=== PATIENT | female | born 1995 | race African-American/Black ===

== ENCOUNTER 2021-07-27 09:37 | Inpatient (IN) | payer OTHER ==
[~2021-07-27] VITALS: Ht 167.6 cm; Wt 76.3 kg
[2021-07-27] VITALS (31 sets, daily range): BP systolic 100–146; BP diastolic 56–77
[2021-07-27] MEDS ORDERED: PRENTAB9 PO (10:00)
[2021-07-27] MEDS ORDERED: HOME MED LIST COMPLETE! XX SCH (10:00)
[2021-07-27] MEDS ORDERED: LACTATED RINGER'S 1000 ML IV STA (11:27)
[2021-07-27] MEDS ORDERED: CARBOPROST TROMETHAMINE 250 MCG/ML AMP IM PRN (11:30)
[2021-07-27] MEDS ORDERED: LIDOCAINE 1% MDV 20ML VIAL INFIL PRN (11:30)
[2021-07-27] MEDS ORDERED: OXYTOCIN DRIP 30 UNITS in IV 1 EA IV SCH (11:30)
[2021-07-27] MEDS ORDERED: METHYLERGONOVINE MALEATE 0.2 MG/ML VIAL (J2210) IM PRN (11:30)
[2021-07-27] MEDS ORDERED: TRANEXAMIC ACID INJection 1,000 MG in NS 100 ML IV PRN (11:30)
[2021-07-27] MEDS ORDERED: OXYTOCIN DRIP 30 UNITS in IV 1 EA IV PRN ×6 (11:30)
--- NOTE | 2021-07-27 11:45 | HPEPDOC ---
Obstetrical History & Physical General Date of Admission History of Present Illness The patient is a 26 year old G1 at 40 week gestation by LMP C/W 10 week ultrasound. She presents to Labor & Delivery today with chief complaint of possible rupture of membranes with clear fluids since 0700 hours this morning associated with some mild cramping. She denies any vaginal bleeding At this time, she continues to report regular movement. Information Provided By: Patient Care Care: Good Care Dating Final EDC: Jul 27, 2021 Final EDC for Daily Update: Jul 27, 2021 Final EDC by: LMP LMP: Oct 20, 2020 EGA at Admission: 40 Antepartum Course Diagnos(e)s 1. ROBERTO a 37 weeks from [facility] Height (inches): 66 Pre- weight (lbs.): 145 Admission Weight (lbs.): 169 Change in Weight (lbs.): 24 Past Medical History Past Obstetrical History : Past Obstetrical History: [employer] History: No pertinent history Past Medical History Surgical History: Denies/None Family History Significant Family History: No pertinent family hx Social History Marital Status: Family situation: Spouse/partner home Psychosocial History: No pertinent psych hx * Smoker: non-smoker Alcohol: Denies Drugs: denies Abuse Violence Screening Have you been hit/kicked/slapp: No Have you been sexually assault: No Imunizations Tdap status: current Influenza Status: current Allergies Coded Allergies: No Known Allergies (Unverified , 07/27/21) Medications Scheduled No.137/Iron/Folic Acd ( Vitamin Tablet) 1 Each Tablet, 1 TAB PO DAILY Physical Examination Physical Examination GENERAL: Alert and oriented times three. BREAST: . ABDOMEN: Gravid and non-tender to touch. FETUS: Is vertex (VTX) by sterile vaginal examination (SVE), and US in clinic yesterday HEART RATE: Regular rate and rhythm. LUNGS: normal work of breathing EXTREMITIES: No edema. Vital Signs/I&O Vital Signs Date Time Temp Pulse Resp B/P (MAP) Pulse Ox O2 Delivery O2 Flow Rate FiO2 07/27/21 10:23 88 114/75 (88) 98 07/27/21 10:12 98.0 16 Laboratory Data Urine Culture: Other Pertinent Laboratoy Data Blood Type: O+ RBC Antibody Screen: Negative HIV: Negative Hepatitis B: Negative Hepatitis C: Unknown Rapid Plasma Reagin: Nonreactive Rubella: Immune Varicella: Immune Chlamydia/Gonorrhea: Negative Group B Streptococcus: Negative Quad Screen Test: Negative Cystic Fibrosis: Negative Glucose Tolerance Test: 104 Anatomy Ultrasound Ultrasound Date: Mar 10, 2021 Placenta Location: Anterior Normal Anatomy: Yes Vaginal Examination Dilation: 3 cm Effacement: 70% Station: -2 Cervical Consistency: Medium Cervical Position: Middle Presentation: Cephalic presentation Assessment Heart Rate (FHR): 145 Variability: Moderate Accelerations: Positive Decelerations: None Tocometer Contractions: Yes Frequency: every 1-5 min. Duration: less than 60 seconds Strength: palpated as mild Multi-drug resistant Organism: No history of MDRO Assessment/Plan Assessment Assessment: 26 y/o G1 at 40 weeks by LMP /W 10 W US admitted with PROM . Pelvis Adequate for trial of labor. Category I FHRT. APC: 1. ROBERTO at 37 weeks from [facility] SVE: 3/75/-2 GBS NEG Cephalic by exam, US in clinic EFW 3200 RH POS Placenta anterior Plan Plan: - Admit to L&D. - Consent done - CBC with type and screen. - EFM - Anesthesia to see - Risks of augmentation with Pitocin discussed with patient. C-S as appropriate. MIKE GAXIOLA MD Jul 27, 2021 11:45
[2021-07-27 12:03] LABS: HEMATOCRIT 39.4 % (36.0-47.0); HEMOGLOBIN 12.4 g/dl (12.0-15.5); MEAN CORPUSCULAR HGB CONC 31.5 g/dl (32.0-36.5); MEAN CORPUSCULAR VOLUME 85.7 fl (80.0-96.0); PLATELET COUNT, AUTOMATED 292 10^3/uL (150-450); WHITE BLOOD COUNT 8.1 10^3/uL (4.0-10.0)
[2021-07-27] MEDS: LR 1,000 ML IV SCH ×4 (12:18→19:12)
[2021-07-27] MEDS ORDERED: FENTANYL 2MCG/ML ROPIVACAINE 0.2% IN 0.9% NACL 100ML IVBAG As Ordered ONE ×2 (13:04→13:54)
[2021-07-27] MEDS ORDERED: ONDANSETRON 4MG/2ML VIAL IV PRN (13:50)
[2021-07-27] MEDS ORDERED: REFRIGERATOR IV KEYS XX PRN (13:50)
[2021-07-27] MEDS ORDERED: LACTATED RINGER'S 1000 ML IV PRN (13:50)
[2021-07-27] MEDS ORDERED: EPIDURAL/PCA KEYS XX PRN (13:50)
[2021-07-27] MEDS ORDERED: FENTANYL/ROPIVACAINE/NACL BAG 100 ML EPIDURAL SCH (13:50)
[2021-07-27] MEDS ORDERED: ePHEDrine SULFATE 25 MG/5 ML(5MG/ML) SYRINGE IV PRN (13:50)
[2021-07-27] MEDS ORDERED: EPIDURAL COMMENT XX SCH (13:50)
[2021-07-27] MEDS ORDERED: diphenhydrAMINE 50MG/ML VIAL (J1200) IV PRN (13:50)
[2021-07-27] MEDS ORDERED: NALOXONE INJ 0.4MG/1ML VIAL (J2310 PER 1MG) IV PRN (13:50)
[2021-07-27] MEDS ORDERED: DOCUSATE SODIUM 100MG CAPSULE PO PRN (20:40)
[2021-07-27] MEDS ORDERED: IBUPROFEN 800 MG TAB PO PRN (20:40)
[2021-07-27] MEDS ORDERED: ACETAMINOPHEN 500 MG TAB PO PRN (20:40)
[2021-07-27] MEDS ORDERED: DIBUCAINE 1% OINTMENT 30GM TOP PRN (20:40)
[2021-07-27] MEDS ORDERED: MEASLES,MUMPS,RUBELLA VACCINE INJ (MMR-II) (90707) SC SCH (20:40)
[2021-07-27] MEDS ORDERED: ANUSOL HC CREAM 30GM TOP PRN (20:40)
[2021-07-27 20:44] LABS: CORD GAS ABE V -7.6; CORD GAS HCO3 A 19.6 MEQ/L; CORD GAS HCO3 V 18.3 MEQ/L; CORD GAS O2 SAT A 49.7 %; CORD GAS O2 SAT V 60.8 %; CORD GAS PCO2 A 47.5 mmHg; CORD GAS PCO2 V 38.8 mmHg; CORD GAS PH A 7.233 UNITS; CORD GAS PH V 7.292 UNITS; CORD GAS PO2 A 22.8 mmHg; CORD GAS PO2 V 25.5 mmHg; CORD GAS SBC V 17.6 MEQ/L; CORD GAS TCO2 V 19.5 MEQ/L
--- NOTE | 2021-07-27 20:50 | DNPDOC ---
[facility] Delivery Note Delivery Note DATE OF DELIVERY: 07/27/2021 PREDELIVERY DIAGNOSIS: 40-0/7 weeks' gestation and labor. POST DELIVERY DIAGNOSIS: Delivered. PROCEDURE: Spontaneous vaginal delivery RISK MANAGER: Dr. Mike GAXIOLA ANESTHESIA: Epidural ESTIMATED BLOOD LOSS: 150 mL. FINDINGS: 6 pound 15 ounce 3140g female , Score 9 /10 DELIVERY SUMMARY: Patient is a 26-year-old 1 now para 1001 who was admitted to labor and delivery for Labor. .Patient progressed to C/C/+2 and with good maternal effort delivered a viable infant. The infants head delivered STRAIGHT OP. No nuchal cord upon delivery of the head. Anterior shoulder delivered with gentle downward traction followed by posterior shoulder and corpus without difficulty. Normal 3-vessel cord clamped x 2 and cut by FOB after 1 min of delayed cord clamping. Spontaneous cry noted. placed on maternal abdomen for [id number]. Placenta delivered spontaneously and inspection of the placenta demonstrated that it was intact. The cord insertion appeared normal. The uterus was cleared of all clots and debris. Fundal massage until firm. 30 units of Pitocin administered per protocol and the patient required no additional uterotonics. Inspection of cervix, perineum, and vaginal wall revealed a 1ST DEGRE LACERATION THAT WAS REPAIRED WITH 2 FIGURE OF EIGHT STITCHES with 2-0 vicryl and bilateral labial abrasions that were hemostatis without repair. Repeat uterine examination noted uterine tone to be adequate and firm. Mom and infant stayed in L&D in hemodynamic stable condition upon my departure. Sponge, lap and needle count correct x 2. JESSEE Gaxiola Physician MIKE GAXIOLA MD Jul 27, 2021 20:47
[2021-07-28 00:10] VITALS: BP 121/66
[2021-07-28 05:34] VITALS: BP 102/64
--- NOTE | 2021-07-28 07:07 | IPNPDOC ---
Progress Note Date of Service: Jul 28, 2021 Day#: 1 Progress Note SUBJECT: Nichol is a 26 -year-old ppd1 s/p AT 40 weeks of a 6 pound 15 ounce 3140g female infant, Score 9 /10. She has been ambulating, voiding spontaneously without issue and tolerating regular diet. Breast feeding without issue. Reports lochia is minimal. bonding well with baby girl. OBJECTIVE: VITAL SIGNS: Within normal limits, afebrile. Alert and oriented times three. normal work of breathing Heart rate: Regular rate and rhythm, no murmurs, rubs or gallops. Abdomen: Fundus firm at U-2. Soft, NTTP. ASSESSMENT: Nichol is a 26 -year-old ppd1 s/p AT 40 weeks of a 6 pound 15 ounce 3140g female , Score 9 /10.doing well on. Vitals within normal limits, afebrile, hemodynamically stable with no evidence of infection. PLAN: 1. Discharge to home tomorrow 2. Tylenol and Motrin for pain. 3. Encourage breast feeding and ambulation. 4. condoms for contraception for now 5. Routine PP visit in 6 weeks in clinic. 6. Discussed return precautions at length. VS, I&O, 24H, Fishbone Vital Signs/I&O Vital Signs Date Time Temp Pulse Resp B/P (MAP) Pulse Ox O2 Delivery O2 Flow Rate FiO2 07/28/21 05:34 98.0 92 18 102/64 (77) 98 Room Air I&O- Last 24 Hours up to 6 AM 07/28/21 06:00 Intake Total 6894 ml Output Total 1350 ml Balance 5544 ml Laboratory Data 24H LABS Laboratory Tests 2 07/27/21 11:46: Nucleated Red Blood Cells % (auto) 0.0, Syphilis Serology NONREACTIVE 07/27/21 12:04: Serology Scanned Report Hepatitis B Testing 07/27/21 20:31: Cord Arterial Blood pH 7.233, Cord Arterial Blood PCO2 47.5, Cord Arterial Blood PO2 22.8, Cord Arterial Blood HCO3 19.6, Cord Arterial Blood Total CO2 21.0, Cord Arterial Blood Base Excess -8.0, Cord Arterial Base Excess (Standard 17.0, Cord Arterial Bld Oxygen Saturation 49.7, Cord Venous Blood pH 7.292, Cord Venous Blood PCO2 38.8, Cord Venous Blood PO2 25.5, Cord Venous Blood HCO3 18.3, Cord Venous Blood Total CO2 19.5, Cord Venous Base Excess (Actual) -7.6, Cord Venous Base Excess (Standard) 17.6, Cord Venous Blood Oxygen Saturation 60.8 CBC/BMP Laboratory Tests 07/27/21 11:46 MIKE GAXIOLA MD Jul 28, 2021 07:07
[2021-07-28] MEDS: FERROUS SULFATE 325MG TAB PO SCH (07:27)
[2021-07-28] MEDS: PRENATAL VITAMINS CHEWABLE TABLET PO SCH (07:27)
[2021-07-28 18:03] VITALS: BP 100/50
[2021-07-29] MEDS ORDERED: DIBU28OI2 TOP (08:00)
[2021-07-29] MEDS ORDERED: ACET-683 PO (08:00)
--- NOTE | 2021-07-29 08:22 | DS.PDOC ---
Discharge Summary General Date of Admission Jul 27, 2021 at 11:58 Date of Discharge Jul 29, 2021 Discharge Summary HOSPITAL COURSE: Ms. Vale is a 26 yo G1 now P1 who underwent an uncomplicated on 27Jul2021 after being admitted for SROM and early labor. She underwent an uncomplicated later that evening. Her course was unremarkable. On her day of discharge she met all appropriate discharge criteria. She was ambulating, voiding, tolerating a regular a regular diet, had minimal pain, and minimal lochia. DISCHARGE MEDICATIONS: Please see below. ALLERGIES: Please see below. PHYSICAL EXAMINATION ON DISCHARGE: VITAL SIGNS: Please see below. GENERAL: AAOX3, sitting up in bed, NAD ABDOMINAL EXAMINATION: Soft, nondistended. Fundus firm at U-2. No fundal tenderness. EXTREMITIES: No edema. PSYCHIATRIC EXAMINATION: Affect appropriate LABORATORY DATA: Please see below. ACTIVITY: Pelvic rest for 6weeks DIET: Regular DISCHARGE PLAN: Discharge home DISPOSITION: Discharge home on 29Jul2021. DISCHARGE INSTRUCTIONS: 1. Pelvic rest for 6 weeks ITEMS TO FOLLOWUP ON ON OUTPATIENT: 1. Schedule appt in 6 weeks DISCHARGE CONDITION: Stable. TIME SPENT ON DISCHARGE: 30 minutes. Vital Signs/I&Os Vital Signs Date Time Temp Pulse Resp B/P (MAP) Pulse Ox O2 Delivery O2 Flow Rate FiO2 07/28/21 18:03 97.5 82 16 100/50 (67) 99 Room Air Discharge Medications Scheduled No.137/Iron/Folic Acd ( Vitamin Tablet) 1 Each Tablet, 1 TAB PO DAILY, (Reported) Scheduled PRN Acetaminophen (Acetaminophen) 500 Mg Tablet, 1,000 MG PO Q6HP PRN for PAIN LEVEL 6-10 Dibucaine (Dibucaine) 28 Gm Oint...g., 0 DOSE TOP Q4H PRN for comfort Allergies Coded Allergies: No Known Allergies (Unverified , 07/27/21) GELA CHAN DO Jul 29, 2021 08:22
[2021-07-29] MEDS: FERROUS SULFATE 325MG TAB PO SCH (08:56)
[2021-07-29] MEDS: PRENATAL VITAMINS CHEWABLE TABLET PO SCH (08:56)
== END 2021-07-29 11:17 | disposition home or self-care (01) | DRG 807 ==
LOC: M LDO 09:37 → M LDI 11:58 → M OBS 07-28 00:03
PROVIDERS: ADMIT Obstetrics & Gynecology; ATTEND Obstetrics & Gynecology
PROC: 10E0XZZ Delivery of Products of Conception, External Approach (ICD-10-PCS; principal; 2021-07-27)
PROC: 0HQ9XZZ Repair Perineum Skin, External Approach (ICD-10-PCS; 2021-07-27)
DX: O42.02 Full-term premature rupture of membranes, onset of labor within 24 hours of rupture (principal); Z37.0 Single live birth; Z3A.40 40 weeks gestation of pregnancy; O70.0 First degree perineal laceration during delivery

== ENCOUNTER 2023-01-08 06:42 | Emergency (ER) | payer OTHER ==
[~2023-01-08] VITALS: Ht 167.6 cm; Wt 75.6 kg
[~2023-01-08 06:42] MED LIST: ACET-683 PO; DIBU28OI2 TOP; PRENTAB9 PO
[2023-01-08] MEDS ORDERED: ACETAMINOPHEN 325 MG TAB PO ONE (07:05)
[2023-01-08] MEDS ORDERED: KETOROLAC 60MG 2ML VIAL IM ONE (07:05)
[2023-01-08] MEDS ORDERED: PENICILLIN V POTASSIUM 500 MG TAB PO ONE (07:55)
[2023-01-08] MEDS ORDERED: PENI500T PO (07:57)
[2023-01-08 08:07] VITALS: BP 110/71
== END 2023-01-08 08:42 | disposition home or self-care (01) ==
LOC: M ED 06:42
DX: J02.0 Streptococcal pharyngitis (principal); F17.200 Nicotine dependence, unspecified, uncomplicated; N83.209 Unspecified ovarian cyst, unspecified side
CPT/HCPCS: 87880; 96372; 99283; J1885

== ENCOUNTER → 2023-01-14 | Outpatient (CLI) | payer OTHER ==
[~2023-01-14] MED LIST changes: +ISOVUE-300 61% 100ML VIAL ONE; +LIDOCAINE 1% MDV 20ML VIAL ONE; +PENI500T PO; +TRIAMCINOLONE ACETONIDE SUSP 40MG/ML 1ML VIAL ONE
== END ==
LOC: M PLAIMG 14:29
PROVIDERS: ATTEND Physician Assistant Surgical
DX: S73.122A Ischiocapsular ligament sprain of left hip, initial encounter (principal); M25.552 Pain in left hip
CPT/HCPCS: 20610; 77002; J3301; Q9967

== ENCOUNTER → 2023-01-23 | Outpatient (CLI) | payer OTHER ==
[~2023-01-23] MED LIST changes: -ISOVUE-300 61% 100ML VIAL ONE; -LIDOCAINE 1% MDV 20ML VIAL ONE; -TRIAMCINOLONE ACETONIDE SUSP 40MG/ML 1ML VIAL ONE
== END ==
LOC: M PLAIMG 12:44
PROVIDERS: ATTEND Physician Assistant Surgical
DX: M25.551 Pain in right hip (principal); S73.121A Ischiocapsular ligament sprain of right hip, initial encounter

== ENCOUNTER 2024-02-26 08:46 | Emergency (ER) | payer OTHER ==
[~2024-02-26] VITALS: Ht 167.6 cm; Wt 71.4 kg
[2024-02-26 09:42] LABS: BASO # 0.1 10^3/uL (0.0-0.2); BASO % 0.7 % (0.0-1.0); EOS # 0.2 10^3/uL (0.0-0.5); EOS % 3.5 % (0.0-3.0); HEMATOCRIT 46.2 % (36.0-47.0); HEMOGLOBIN 14.9 g/dl (12.0-15.5); LYMPH # 1.1 10^3/uL (1.5-5.0); LYMPH % 15.7 % (24.0-44.0); MEAN CORPUSCULAR HEMOGLOBIN 28.9 pg (27.0-33.0); MEAN CORPUSCULAR HGB CONC 32.3 g/dl (32.0-36.5); MEAN CORPUSCULAR VOLUME 89.7 fl (80.0-96.0); MONO # 0.7 10^3/uL (0.0-0.8); MONO % 10.5 % (2.0-8.0); NEUTROPHILS # 4.8 10^3/uL (1.5-8.5); NEUTROPHILS % 69.3 % (36.0-66.0); PLATELET COUNT, AUTOMATED 399 10^3/uL (150-450); RED BLOOD COUNT 5.15 10^6/uL (4.00-5.40); WHITE BLOOD COUNT 6.9 10^3/uL (4.0-10.0)
[2024-02-26] MEDS: NS 1,000 ML IV ONE (09:52)
[2024-02-26 10:12] LABS: LIPASE 30 U/L (12-53)
[2024-02-26 10:13] LABS: HCG, SERUM QUALITATIVE NEGATIVE (NEGATIVE)
[2024-02-26 10:15] LABS: ALKALINE PHOSPHATASE 75 U/L (46-116); ALT/SGPT 17 U/L (7.0-40); AST/SGOT 21 U/L (<34); BILIRUBIN,DIRECT < 0.1 MG/DL (<0.4); BILIRUBIN,TOTAL 0.3 MG/DL (0.3-1.2); BLOOD UREA NITROGEN 10 MG/DL (9-23); CALCIUM LEVEL 9.6 MG/DL (8.5-10.1); CARBON DIOXIDE LEVEL 25 MMOL/L (20-31); CHLORIDE LEVEL 107 MMOL/L (98-107); CREATININE FOR GFR 0.89 MG/DL (0.55-1.30); GLOMERULAR FILTRATION RATE > 60.0 (>60); GLUCOSE, FASTING 72 MG/DL (60-100); POTASSIUM SERUM 4.3 MMOL/L (3.5-5.1); SODIUM LEVEL 139 MMOL/L (136-145); TOTAL PROTEIN 7.5 G/DL (5.7-8.2)
[2024-02-26 10:17] LABS: CPK CREATINE PHOSPHOKINASE 312 U/L (34-145)
[2024-02-26 11:08] VITALS: BP 135/79; TEMP 97.6; O2SAT 100
== END 2024-02-26 11:09 | disposition home or self-care (01) ==
LOC: M ED 08:46
DX: R50.9 Fever, unspecified (principal); B34.9 Viral infection, unspecified; F41.9 Anxiety disorder, unspecified; F32.A Depression, unspecified; F17.210 Nicotine dependence, cigarettes, uncomplicated; F10.10 Alcohol abuse, uncomplicated; Z91.09 Other allergy status, other than to drugs and biological substances; Z79.2 Long term (current) use of antibiotics

== ENCOUNTER 2024-03-01 16:58 | Inpatient (IN) | payer OTHER ==
[~2024-03-01] VITALS: Ht 167.6 cm; Wt 70.5 kg
[2024-03-01] MEDS ORDERED: LEXA1TAB2 PO (17:20)
[2024-03-01 17:55] LABS: HEMATOCRIT 43.3 % (36.0-47.0); HEMOGLOBIN 14.1 g/dl (12.0-15.5); MEAN CORPUSCULAR HEMOGLOBIN 28.4 pg (27.0-33.0); MEAN CORPUSCULAR HGB CONC 32.6 g/dl (32.0-36.5); MEAN CORPUSCULAR VOLUME 87.3 fl (80.0-96.0); PLATELET COUNT, AUTOMATED 442 10^3/uL (150-450); RED BLOOD COUNT 4.96 10^6/uL (4.00-5.40); WHITE BLOOD COUNT 6.6 10^3/uL (4.0-10.0)
[2024-03-01 18:10] LABS: AMPHETAMINES LEVEL URINE NEGATIVE (NEGATIVE); BARBITURATES URINE NEGATIVE (NEGATIVE); BENZODIAZEPINES URINE NEGATIVE (NEGATIVE); CANNABINOIDS URINE NEGATIVE (NEGATIVE); COCAINE METABOLITE URINE NEGATIVE (NEGATIVE); METHADONE URINE NEGATIVE (NEGATIVE); OPIATES URINE NEGATIVE (NEGATIVE); PHENCYCLIDINE URINE NEGATIVE (NEGATIVE)
[2024-03-01 18:12] LABS: ETHYL ALCOHOL (ETHANOL) < 0.003 % (0.000-0.010)
[2024-03-01 18:14] LABS: ALBUMIN 4.1 G/DL (3.2-5.2); ALKALINE PHOSPHATASE 76 U/L (46-116); ALT/SGPT 19 U/L (7.0-40); AST/SGOT 23 U/L (<34); BILIRUBIN,DIRECT < 0.1 MG/DL (<0.4); BILIRUBIN,TOTAL 0.3 MG/DL (0.3-1.2); BLOOD UREA NITROGEN 12 MG/DL (9-23); CALCIUM LEVEL 8.9 MG/DL (8.5-10.1); CARBON DIOXIDE LEVEL 23 MMOL/L (20-31); CHLORIDE LEVEL 107 MMOL/L (98-107); CREATININE FOR GFR 0.85 MG/DL (0.55-1.30); GLOMERULAR FILTRATION RATE > 60.0 (>60); GLUCOSE, FASTING 100 MG/DL (60-100); POTASSIUM SERUM 3.8 MMOL/L (3.5-5.1); SALICYLATE LEVEL < 3.0 MG/DL (<30); SODIUM LEVEL 138 MMOL/L (136-145); TOTAL PROTEIN 7.2 G/DL (5.7-8.2)
[2024-03-01 18:17] LABS: THYROID STIMULATING HORMONE 0.733 uIU/ML (0.55-4.78)
[2024-03-01 18:33] LABS: HCG, SERUM QUALITATIVE NEGATIVE (NEGATIVE)
[2024-03-01] MEDS ORDERED: TRIA25CR TOP (21:05)
[2024-03-01] MEDS ORDERED: LEXA1TAB PO (21:05)
[2024-03-01] MEDS ORDERED: HAIR1CHW PO (21:28)
[2024-03-01] MEDS ORDERED: B-122500 PO (21:28)
[2024-03-01] MEDS ORDERED: BACI1CAP PO (21:28)
[2024-03-01] MEDS ORDERED: THERTAB52 PO (21:28)
[2024-03-01] MEDS ORDERED: HOME MED LIST COMPLETE! XX SCH (21:30)
[2024-03-02] MEDS: MULTIVITAMINS/MINERALS THERAP 1 TAB PO SCH (08:21)
[2024-03-02] MEDS: LACTOBACILLUS ACIDOPHILUS CAP (BACID) PO SCH (08:22)
[2024-03-02] MEDS: CYANOCOBALAMIN 500 MCG TAB PO SCH (08:22)
[2024-03-02] MEDS: ESCITALOPRAM OXALATE 10 MG TAB (LEXAPRO) PO SCH (09:00)
[2024-03-02] MEDS ORDERED: ISOVUE-370 76% 100ML VIAL As Ordered ONE (09:10)
[2024-03-02] MEDS ORDERED: diphenhydrAMINE 25MG CAP PO PRN (13:40)
[2024-03-02] MEDS ORDERED: IBUPROFEN 400MG TAB PO PRN (13:40)
[2024-03-02] MEDS ORDERED: MAALOX 30 ML SUSP *UDC PO PRN (13:40)
[2024-03-02] MEDS ORDERED: MOM 30ML SUSPENSION UDC PO PRN (13:40)
[2024-03-02] MEDS ORDERED: ACETAMINOPHEN TAB 650MG DOSE (2X325MG) PO PRN (13:40)
[2024-03-02 17:19] VITALS: BP 135/84; TEMP 99.1; O2SAT 98
[2024-03-02] MEDS: TRIAMCINOLONE ACETONIDE 0.025% 80GM CREAM TOP SCH (21:00)
[2024-03-03 06:25] VITALS: BP 114/55; TEMP 97.6; O2SAT 98
[2024-03-03] MEDS ORDERED: ESCITALOPRAM OXALATE 10 MG TAB (LEXAPRO) PO SCH (09:00)
[2024-03-03] MEDS: ESCITALOPRAM OXALATE 10 MG TAB (LEXAPRO) PO SCH (11:13)
[2024-03-03] MEDS: CYANOCOBALAMIN 500 MCG TAB PO SCH (11:16)
[2024-03-03 18:19] VITALS: BP 126/68; TEMP 98.8
[2024-03-03] MEDS: busPIRone 5 MG TAB PO SCH (20:36)
[2024-03-03] MEDS: traZODone 50 MG TAB PO PRN (20:36)
[2024-03-04 06:01] VITALS: BP 99/55; TEMP 97.7; O2SAT 100
[2024-03-04] MEDS: ESCITALOPRAM OXALATE 10 MG TAB (LEXAPRO) PO ONE (09:28)
[2024-03-04] MEDS ORDERED: BUSP5TA PO (09:39)
[2024-03-04] MEDS ORDERED: LEXA1TAB PO (09:39)
[2024-03-04] MEDS ORDERED: TRAZ-252 PO (09:39)
[2024-03-04 17:52] VITALS: BP 115/62; TEMP 98.1
[2024-03-05 06:24] VITALS: BP 122/68; TEMP 98.3; O2SAT 99
[2024-03-05] MEDS: ESCITALOPRAM OXALATE 10 MG TAB (LEXAPRO) PO SCH (08:18)
== END 2024-03-05 09:12 | disposition home or self-care (01) | DRG 881 ==
LOC: M ED 16:58 → M ED INP 03-02 13:42 → M PSY 03-02 17:24
PROVIDERS: ADMIT Student in an Organized Health Care Education/Training Program; ATTEND Student in an Organized Health Care Education/Training Program
DX: F32.A Depression, unspecified (principal); R45.851 Suicidal ideations; F41.9 Anxiety disorder, unspecified; Z91.52 Personal history of nonsuicidal self-harm; Z11.52 Encounter for screening for COVID-19; Z79.899 Other long term (current) drug therapy

== ENCOUNTER 2024-04-01 14:20 | Inpatient (IN) | payer OTHER ==
[~2024-04-01] VITALS: Ht 167.6 cm; Wt 68.2 kg
[~2024-04-01 14:20] MED LIST changes: +B-122500 PO; +BACI1CAP PO; +BUSP5TA PO; +HAIR1CHW PO; +LEXA1TAB PO; +LEXA1TAB2 PO; +THERTAB52 PO; +TRAZ-252 PO; +TRIA25CR TOP
[2024-04-01 15:07] LABS: HEMATOCRIT 42.4 % (36.0-47.0); HEMOGLOBIN 13.9 g/dl (12.0-15.5); MEAN CORPUSCULAR HEMOGLOBIN 28.9 pg (27.0-33.0); MEAN CORPUSCULAR HGB CONC 32.8 g/dl (32.0-36.5); MEAN CORPUSCULAR VOLUME 88.1 fl (80.0-96.0); PLATELET COUNT, AUTOMATED 395 10^3/uL (150-450); RED BLOOD COUNT 4.81 10^6/uL (4.00-5.40); WHITE BLOOD COUNT 5.9 10^3/uL (4.0-10.0)
[2024-04-01 15:31] LABS: AMPHETAMINES LEVEL URINE NEGATIVE (NEGATIVE); BARBITURATES URINE NEGATIVE (NEGATIVE); BENZODIAZEPINES URINE NEGATIVE (NEGATIVE); CANNABINOIDS URINE NEGATIVE (NEGATIVE); COCAINE METABOLITE URINE NEGATIVE (NEGATIVE); METHADONE URINE NEGATIVE (NEGATIVE); OPIATES URINE NEGATIVE (NEGATIVE); PHENCYCLIDINE URINE NEGATIVE (NEGATIVE)
[2024-04-01 15:33] LABS: ETHYL ALCOHOL (ETHANOL) < 0.003 % (0.000-0.010)
[2024-04-01 15:34] LABS: SALICYLATE LEVEL < 3.0 MG/DL (<30)
[2024-04-01 15:35] LABS: ALBUMIN 3.9 G/DL (3.2-5.2); ALKALINE PHOSPHATASE 75 U/L (46-116); ALT/SGPT 18 U/L (7.0-40); AST/SGOT 18 U/L (<34); BILIRUBIN,DIRECT 0.1 MG/DL (<0.4); BILIRUBIN,TOTAL 0.4 MG/DL (0.3-1.2); BLOOD UREA NITROGEN 8 MG/DL (9-23); CALCIUM LEVEL 9.4 MG/DL (8.5-10.1); CARBON DIOXIDE LEVEL 26 MMOL/L (20-31); CHLORIDE LEVEL 108 MMOL/L (98-107); CREATININE FOR GFR 0.98 MG/DL (0.55-1.30); GLOMERULAR FILTRATION RATE > 60.0 (>60); GLUCOSE, FASTING 95 MG/DL (60-100); POTASSIUM SERUM 3.9 MMOL/L (3.5-5.1); SODIUM LEVEL 138 MMOL/L (136-145); TOTAL PROTEIN 6.9 G/DL (5.7-8.2)
[2024-04-01 15:37] LABS: THYROID STIMULATING HORMONE 1.225 uIU/ML (0.55-4.78)
[2024-04-01 18:38] LABS: HCG, SERUM QUALITATIVE NEGATIVE (NEGATIVE)
[2024-04-01] MEDS ORDERED: MAALOX 30 ML SUSP *UDC PO PRN (19:10)
[2024-04-01] MEDS ORDERED: ACETAMINOPHEN TAB 650MG DOSE (2X325MG) PO PRN (19:10)
[2024-04-01] MEDS ORDERED: IBUPROFEN 400MG TAB PO PRN (19:10)
[2024-04-01] MEDS ORDERED: diphenhydrAMINE 25MG CAP PO PRN (19:10)
[2024-04-01] MEDS ORDERED: MOM 30ML SUSPENSION UDC PO PRN (19:10)
[2024-04-01] MEDS ORDERED: TRAZ-252 PO (22:01)
[2024-04-01] MEDS ORDERED: BUSP5TA PO ×2 (22:01)
[2024-04-01] MEDS ORDERED: HOME MED LIST COMPLETE! XX SCH (22:05)
[2024-04-01] MEDS: traZODone 50 MG TAB PO PRN (23:02)
[2024-04-02 03:29] VITALS: BP 132/86; TEMP 98.2; O2SAT 100
[2024-04-02 06:39] VITALS: BP 95/50; TEMP 97.3; O2SAT 97
[2024-04-02] MEDS: ESCITALOPRAM OXALATE 5MG TABLET (LEXAPRO) PO SCH (09:00)
[2024-04-02] MEDS ORDERED: busPIRone 10 MG TAB PO SCH (09:00)
[2024-04-02] MEDS ORDERED: TRIAMCINOLONE ACETONIDE 0.025% 80GM CREAM TOP PRN (09:10)
[2024-04-02] MEDS: busPIRone 10 MG TAB PO SCH (12:25)
[2024-04-02 19:00] VITALS: BP 118/67; TEMP 97.8; O2SAT 100
[2024-04-02] MEDS: busPIRone 5 MG TAB PO SCH (20:58)
[2024-04-03] MEDS ORDERED: ESCITALOPRAM OXALATE 10 MG TAB (LEXAPRO) As Ordered ONE (08:42)
[2024-04-03] MEDS ORDERED: busPIRone 10 MG TAB As Ordered ONE (08:42)
[2024-04-03] MEDS ORDERED: busPIRone 10 MG TAB PO SCH (09:00)
== END 2024-04-03 11:54 | disposition home or self-care (01) | DRG 881 ==
LOC: M ED 14:20 → M ED INP 19:06 → M PSY 20:36
PROVIDERS: ADMIT Student in an Organized Health Care Education/Training Program; ATTEND Student in an Organized Health Care Education/Training Program
DX: F32.A Depression, unspecified (principal); R45.851 Suicidal ideations; F10.10 Alcohol abuse, uncomplicated; F43.23 Adjustment disorder with mixed anxiety and depressed mood; F17.210 Nicotine dependence, cigarettes, uncomplicated; Z63.0 Problems in relationship with spouse or partner; Z63.8 Other specified problems related to primary support group; Z79.899 Other long term (current) drug therapy; Z91.51 Personal history of suicidal behavior